=== PATIENT | female | born 1975 | race Caucasian/White ===

== ENCOUNTER → 2017-09-27 | Outpatient (CLI) | payer OTHER ==
[~2017-09-27] MED LIST: APIDRA; K-DUR 20 MEQ T20 MEQ OR; LANTUS SQ; LEVOTHROID75 MCG PO; MULTIVITAMINS PO; NEURONTIN 300300 M1 PO; PHOSPHATIDYLCHOL1 GM; SLOW-MAG64 MG OR
== END ==
LOC: HYPER 09-26 15:39
DX: E10.621 Type 1 diabetes mellitus with foot ulcer (principal); L97.512 Non-pressure chronic ulcer of other part of right foot with fat layer exposed; L97.522 Non-pressure chronic ulcer of other part of left foot with fat layer exposed; E10.42 Type 1 diabetes mellitus with diabetic polyneuropathy; L84 Corns and callosities; F17.200 Nicotine dependence, unspecified, uncomplicated

== ENCOUNTER → 2017-10-18 | Outpatient (CLI) | payer OTHER | LOC: HYPER 06:42 | DX: E10.621 Type 1 diabetes mellitus with foot ulcer (principal); L97.521 Non-pressure chronic ulcer of other part of left foot limited to breakdown of skin; L97.511 Non-pressure chronic ulcer of other part of right foot limited to breakdown of skin; L84 Corns and callosities; E10.42 Type 1 diabetes mellitus with diabetic polyneuropathy; F17.200 Nicotine dependence, unspecified, uncomplicated ==